=== PATIENT | male | born 1990 | race Caucasian/White ===

== ENCOUNTER 2017-07-20 00:15 | Inpatient (IN) | payer OTHER ==
[~2017-07-20] VITALS: Ht 193 cm; Wt 95.3 kg
--- NOTE | 2017-07-20 12:35 | NUR ---
Pre admission assessment Patient is a 26 year old male , AAO x 4 , no SOB, slightly anxious. Discussed with patient admission policies of the unit. Patient is able to respond to questions appropriately, ambulating, steady gait. patient reports using Alcohol ( beer , wine, whisky ) 10-15 drinks per day ( 1 drink =1 beer/1 glass wine/1 shot whisky) and Rx Xanax 0.5mg 3-5 times/day. Occasional use of cocaine, MDMA , last used March 2017. Vital signs stable, 125/72 hr 90 RR 18, O2 96%, temp 96f. patient verbalized instructions and teachings regarding disposal of narcotics and other controlled home meds, unit protocols and disposal of contraband. Will further assess when patient on unit
[2017-07-20] MEDS ORDERED: LOPERAMIDE HCL 2 MG CAPSULE PO PRN ×2 (13:00)
[2017-07-20] MEDS ORDERED: ONDANSETRON 4 MG/2 ML VIAL IM PRN (13:00)
[2017-07-20] MEDS ORDERED: LORAZEPAM 2 MG/1 ML VIAL IM PRN (13:00)
[2017-07-20] MEDS ORDERED: MIRALAX 17 GM POWD.PACK PO PRN (13:00)
[2017-07-20] MEDS ORDERED: NICOTINE POLACRILEX 4 MG GUM-PK OF TEN BC PRN (13:00)
[2017-07-20] MEDS ORDERED: MAG HYDROX/AL HYDROX/SIMETH 30 ML LIQUID UDC PO PRN (13:00)
[2017-07-20] MEDS ORDERED: ONDANSETRON ODT 4 MG TAB.RAPDIS SL PRN (13:00)
[2017-07-20] MEDS ORDERED: NICOTINE 14 MG/24HR PATCH TD PRN (13:00)
[2017-07-20] MEDS ORDERED: MAGNESIUM HYDROXIDE 30 ML LIQUID UDC PO PRN (13:00)
[2017-07-20] MEDS ORDERED: THIAMINE HCL 200 MG/2 ML VIAL IM ONE (13:00)
[2017-07-20] MEDS ORDERED: DICYCLOMINE HCL 20 MG TABLET PO PRN (13:00)
[2017-07-20] MEDS ORDERED: diphenhydrAMINE 50 MG CAPSULE PO PRN (13:00)
[2017-07-20] MEDS ORDERED: LORAZEPAM 1 MG TABLET PO PRN ×2 (13:00)
--- NOTE | 2017-07-20 13:00 | NUR ---
Admission assessment 26 year old male presented to [facility] to detoxify from Alcohol and Rx xanax. Pt arrived here by car with his mother at 1230 , patient admitted under the care of Dr Pardo and is in room 305. NKA, Regular diet, full code, weight is 210 and height 6'4", skin clear and intact. Patient reports no history of seizures, no SI/HI, mood appears slightly anxious. Patient states that he got last year and that has caused alot of stress in his life and has caused him to drink more and abuse his Rx Xanax, pt states he drinks 10-15 drinks a day ( beer/wine/whisky) and uses Xanax 0.5mg po 3-5 x day. patient is from his currently and living with his Mom, family history of substance abuse ( father is an alcoholic) Admission CIWA 4 @ 1300, safety measures in place , will continue to monitor
[2017-07-20] MEDS ORDERED: ESCI10TA PO (13:23)
[2017-07-20] MEDS ORDERED: ALPR0.5T8 PO (13:23)
[2017-07-20 13:53] LABS: *AMPHETAMINE, URINE NEGATIVE (NEGATIVE); *BARBITURATE, URINE NEGATIVE (NEGATIVE); *CANNABINOID, URINE NEGATIVE (NEGATIVE); *COCCAINE, URINE NEGATIVE (NEGATIVE); *OPIATE, URINE NEGATIVE (NEGATIVE); *PHENCYCLIDINE SCREEN,URINE NEGATIVE (NEGATIVE)
[2017-07-20 15:00] LABS: BASOPHILS # (AUTO) 0.1 K/uL (0.0-8.0); BASOPHILS % (AUTO) 1.4 % (0.0-2.0); EOSINOPHILS # (AUTO) 0.4 K/uL (0.0-0.7); EOSINOPHILS % (AUTO) 7.8 % (0.0-7.0); HEMATOCRIT 45.9 % (36.7-47.1); LYMPHOCYTES # (AUTO) 1.5 K/uL (20.0-40.0); LYMPHOCYTES % (AUTO) 29.5 % (20.5-51.5); MEAN CORPUSCULAR HEMOGLOBIN 35.1 uug (23.8-33.4); MEAN CORPUSCULAR HGB CONC 35 g/dL (32.5-36.3); MEAN CORPUSCULAR VOLUME 100.4 fL (73.0-96.2); MONOCYTES # (AUTO) 0.4 K/uL (2.0-10.0); NEUTROPHILS # (AUTO) 2.8 K/uL (1.8-8.9); NEUTROPHILS % (AUTO) 53.3 % (38.5-71.5); PLATELET COUNT (AUTO) 200 K/uL (152-348); RED BLOOD CELL COUNT(AUTO) 4.57 MIL/uL (4.06-5.63); WHITE BLOOD COUNT (AUTO) 5.2 K/uL (3.6-10.2)
[2017-07-20 15:10] LABS: BILIRUBIN,TOTAL 0.3 mg/dL (0.2-1.0); CREATININE 1.1 mg/dL (0.6-1.3); MAGNESIUM 1.8 mg/dL (1.8-2.4); TOTAL PROTEIN, SERUM 7.9 g/dL (6.4-8.2)
[2017-07-20 17:00] VITALS: BP 125/80
--- NOTE | 2017-07-20 18:34 | NUR ---
End of shift note : 26 year old male presented to [facility] to detoxify from Alcohol and Rx Xanax. Patient admitted under the care of Dr Pardo and is in room 305. NKA, Regular diet, full code, weight is 210 and height 6'4", skin clear and intact. Patient reports no history of seizures, no SI/HI, mood appears slightly anxious. Has a history of anxiety and depression. Patient will start tonight on a 5 day Ativan taper. Patient has been resting on his bed all afternoon, breathing unlabored and even, no distress noted. No medications given this shift. Last CIWA 4 @ 1600. Bed in low locked position with side rails up x 2. Continue to follow MD plan of care.
--- NOTE | 2017-07-20 19:30 | NUR ---
END OF SHIFT Pt is a 26 y/o male admitted today for ETOH and benzo dependence. Pt will start a 5 day Ativan taper tonight. No PRNs administered during day shift and last CIWA 4 at 1600. Upon assessment pt presents with anxiety, agitation, restlessness, flushed skin, increased BP, sweats, headache. Denies chest pain or SOB. Respirations even and unlabored. Denies N/V/D. Safety measures in place. Call light within reach. Will continue to monitor. Addendum: 07/20/17 at 7 by PAUL MARIN RN START OF SHIFT, NOT END OF SHIFT
[2017-07-20 20:00] VITALS: BP 152/84
[2017-07-20] MEDS: CLONIDINE HCL 0.1 MG TABLET PO PRN (20:16)
[2017-07-20] MEDS: IBUPROFEN 400 MG TABLET PO PRN (20:16)
--- NOTE | 2017-07-20 20:16 | NUR ---
PRN MOTRIN AND CLONIDINE ADMINISTRATION Pt reports headache 10/08. BP 152/84 HR 76, orders to give Clonidine for BP > 140/90. Safety measures in place. Call light within reach. Will continue to monitor.
[2017-07-20] MEDS ORDERED: LORAZEPAM 1 MG TABLET PO SCH (21:00)
[2017-07-20 21:16] VITALS: BP 136/65
--- NOTE | 2017-07-20 21:16 | NUR ---
PRN MOTRIN AND CLONIDINE REASSESSMENT Pt reports headache decreased to 1/10. BP 136/65 HR 74, Clonidine effective. Safety measures in place. Call light within reach. Will continue to monitor.
[2017-07-20] MEDS ORDERED: TRAZ-147 PO (23:08)
[2017-07-21] VITALS (7 sets, daily range): BP systolic 117–154; BP diastolic 53–89
--- NOTE | 2017-07-21 | NUR ---
CIWA DEFERRED Pt laying in bed with eyes closed, CIWA deferred, to be assessed when pt is awake per orders. Respirations even and unlabored. Safety measures in place. Call light within reach. Will continue to monitor.
--- NOTE | 2017-07-21 06:58 | NUR ---
END OF SHIFT Pt is a 26 y/o male admitted today for ETOH and benzo dependence. Pt started a 5 day Ativan taper last night, tolerated well. Pt presented with anxiety, agitation, restlessness, flushed skin, increased BP, depressed affect, sweats and headache. Pt was seen sitting in chair in room with restless legs and anxiety for duration of hours awake. Scheduled medications and PRN Motrin and Clonidine administered, effective in S/S of withdrawal as verbalized by pt. Last CIWA 7 at 1999. Pt slept 6 hours. Intake 1415, void x 3, stool x 0. Safety measures in place. Call light within reach. Pts needs have been met. Endorsed to day shift nurse.
[2017-07-21] MEDS: PANTOPRAZOLE SODIUM 40 MG TABLET.DR PO SCH (07:09)
--- NOTE | 2017-07-21 07:10 | NUR ---
Start of shift Pt is a 26 y/o male admitted 07/20/17 for ETOH and benzo withdrawal. Pt started a 5 day Ativan taper last night, tolerated well. Scheduled medications and PRN Motrin and Clonidine administered, Last CIWA 7 at 1999. Pt slept 6 hours. Safety measures in place. Call light within reach. NKA , regular diet and full code, will follow MD plan of care
[2017-07-21] MEDS: FOLIC ACID 1 MG TABLET PO SCH (08:25)
[2017-07-21] MEDS: THIAMINE HCL 100 MG TABLET PO SCH (08:25)
[2017-07-21] MEDS: MULTIVITAMINS,THERAPEUTIC TABLET PO SCH (08:25)
[2017-07-21] MEDS: LORAZEPAM 1 MG TABLET PO SCH ×3 (08:25→21:04)
[2017-07-21] MEDS ORDERED: TUBERCULIN,PURIF.PROT.DERIV. 5 TU/0.1 ML TEST ID ONE (09:00)
[2017-07-21] MEDS: ESCITALOPRAM OXALATE 10 MG TABLET PO SCH (10:43)
[2017-07-21] MEDS: CLONIDINE HCL 0.1 MG TABLET PO PRN ×2 (12:38→21:03)
[2017-07-21] MEDS: ACETAMINOPHEN 325 MG TABLET PO PRN (12:38)
[2017-07-21] MEDS: IBUPROFEN 400 MG TABLET PO PRN (12:38)
--- NOTE | 2017-07-21 12:38 | NUR ---
PRN MEDS/HEADACHE TYLENOL 650MG PO, MOTRIN 400MG PO AND CLONIDINE 0.1 MG PO GIVEN FOR COMPLAINTS OF HEADACHE 3/10 AND INCREASED BLOOD PRESSURE 154/89 NO DOUBLE VISION OR DIZZYNESS REPORTED, WILL REASSESS IN 1 HOUR
--- NOTE | 2017-07-21 13:38 | NUR ---
PRN REASSESS LATE AMEND : PRN MOTRIN 400MG AND CLONIDINE 0.1MG PO EFFECTIVE, NO C/O HEADACHE, BP 138/69
--- NOTE | 2017-07-21 18:38 | NUR ---
End of shift note : 26 year old male presented to [facility] to detoxify from Alcohol and Rx Xanax. Patient admitted under the care of Dr Pardo and is in room 305. NKA, Regular diet, full code, weight is 210 and height 6'4", skin clear and intact. Patient reports no history of seizures, no SI/HI, mood appears slightly anxious. Has a history of anxiety and depression. Patient is on a 5 day Ativan taper and today is day 2 and is tolerating well. Patient attended group today and said it helped a lot. PRN meds given this shift: motrin 400mg po/ Tylenol 650mg po for headache and Clonidine 0.1mg po for increased BP and all were effective. MD started patient on Lexapro 50mg po every AM. Last CIWA 6@ 1600. MD ordered Trazadone 100mg po at bedtime and Gabapentin 300mg po Q12H, Protonix to be given @ 0700. Patient declined TB test today. Safety measures in place, bed in low locked position with side rails up x2 , call light within reach, continue MD plan of care.
--- NOTE | 2017-07-21 19:30 | NUR ---
START OF SHIFT Pt is a 26 y/o male admitted today for ETOH and benzo dependence. Pt will start a 5 day Ativan taper tonight. PRN Clonidine, Motrin and Tylenol administered and last CIWA 6 at 1600. Upon assessment pt was laying in bed with eyes closed. Upon awakening, pt presents with anxiety, agitation, restlessness, flushed skin, fatigue, increased BP, sweats, headache. Denies chest pain or SOB. Respirations even and unlabored. Denies N/V/D. Safety measures in place. Call light within reach. Will continue to monitor. Addendum: 07/22/17 at 0445 by PAUL MARIN RN CORRECTION: ADMITTED ON 07/20/17 Addendum: 07/22/17 at 0447 by PAUL MARIN RN CORRECTION: STARTED AN ATIVAN TAPER ON 07/20/17, TOLERATING WELL.
[2017-07-21] MEDS ORDERED: TRAZODONE 100 MG TABLET PO SCH (21:00)
[2017-07-21] MEDS: GABAPENTIN 300 MG CAPSULE PO SCH (21:03)
--- NOTE | 2017-07-21 21:03 | NUR ---
PRN CLONIDINE ADMINISTRATION BP 141/84 HR 80, orders to give Clonidine 0.1 mg for BP >140/90. Safety measures in place. Call light within reach. Will continue to monitor.
--- NOTE | 2017-07-21 22:03 | NUR ---
PRN CLONIDINE REASSESSMENT BP 117/53 HR 72, Clonidine effective. Safety measures in place. Call light within reach. Will continue to monitor.
[2017-07-22] VITALS: BP 120/64
[2017-07-22 04:00] VITALS: BP 121/68
--- NOTE | 2017-07-22 06:55 | NUR ---
END OF SHIFT Pt is a 26 y/o male admitted ON 07/20/17 for ETOH and benzo dependence. Pt started a 5 day Ativan taper on 07/20/17, tolerating well. Pt presented with anxiety, agitation, restlessness, flushed skin, difficulty concentrating, malaise, fatigue, increased BP, sweats, headache. Scheduled medications and PRN Clonidine administered for BP, effective in S/S of withdrawal as verbalized by pt. BP went from 141/84 to 117/74. Last CIWA 11 at 1999. Pt slept 8 hours. Intake 1355 ml, void x 3, stool x 0. Safety measures in place. Call light within reach. Pts needs have been met. Endorsed to day shift nurse.
[2017-07-22] MEDS: PANTOPRAZOLE SODIUM 40 MG TABLET.DR PO SCH (07:08)
--- NOTE | 2017-07-22 07:54 | NUR ---
START OF SHIFT RECEIVED PT A/OX4. RESPIRATIONS EVEN AND UNLABORED. PT REPORTS HAVING ANXIETY, RESTLESSNESS, HEADACHE. PT REPORTS BEING ABLE TO SLEEP WELL FOR THE FIRST TIME LAST NIGHT. PT CONTINUES ON A 5 DAY ATIVAN TAPER AND IS TOLERATING WELL PER AUTOMOTIVE PARTS MANAGER NURSE. ENCOURAGED PT TO INCREASE FLUID INTAKE TO PROMOTE HYDRATION. SIDE RAILS UP X2, BED IS IN LOWEST POSITION. ALL SAFETY MEASURES IN PLACE. CALL LIGHT IS WITHIN REACH. WILL CONTINUE TO MONITOR.
[2017-07-22 08:00] VITALS: BP 138/79
[2017-07-22] MEDS: THIAMINE HCL 100 MG TABLET PO SCH (08:59)
[2017-07-22] MEDS: FOLIC ACID 1 MG TABLET PO SCH (08:59)
[2017-07-22] MEDS: LORAZEPAM 1 MG TABLET PO SCH ×3 (08:59→16:58)
[2017-07-22] MEDS: MULTIVITAMINS,THERAPEUTIC TABLET PO SCH (08:59)
[2017-07-22] MEDS: GABAPENTIN 300 MG CAPSULE PO SCH ×2 (08:59→21:23)
[2017-07-22] MEDS: ESCITALOPRAM OXALATE 10 MG TABLET PO SCH (08:59)
[2017-07-22] MEDS: IBUPROFEN 400 MG TABLET PO PRN ×2 (09:00→21:23)
--- NOTE | 2017-07-22 09:00 | NUR ---
PRN MOTRIN 400 MG PO PRN GIVEN FOR HEADACHE 5/10 PAIN. WILL MONITOR FOR EFFECTIVENESS.
--- NOTE | 2017-07-22 10:00 | NUR ---
REASSESSMENT PT REPORTED MED WAS EFFECTIVE FOR HEADACHE. WILL CONTINUE TO MONITOR.
[2017-07-22 12:00] VITALS: BP 128/80
[2017-07-22 16:00] VITALS: BP 156/82
[2017-07-22] MEDS: CLONIDINE HCL 0.1 MG TABLET PO PRN (17:45)
--- NOTE | 2017-07-22 17:45 | NUR ---
PRN CLONIDINE 0.1 MG PO PRN GIVEN FOR ANXIETY AND BP: 156/82. WILL MONITOR FOR EFFECTIVENESS.
--- NOTE | 2017-07-22 19:31 | NUR ---
END OF SHIFT PT IS A 26 Y/O M ADMITTED FOR ETOH W/D. PT IS A/OX4. RESPIRATIONS EVEN AND UNLABORED. PT REPORTS HAVING ANXIETY, RESTLESSNESS, HEADACHE AND A LACK OF APPETITE. PT STATES HE FEELS EMOTIONAL AND EASILY FEELS SAD OR DEPRESSED; PT STATES HE ALMOST HAD A PANIC ATTACK AFTER EXPERIENCING AN ALTERCATION DURING GROUP YESTERDAY BUT CALMED DOWN ONCE HE GOT INTO HIS ROOM. GAVE REASSURANCE EDUCATED ON S/S TO REPORT. PT HAD HIGH BP DURING SHIFT AND CLONIDINE WAS GIVEN. LAST CIWA 8 AT 1600. PT CONTINUES ON A 5 DAY ATIVAN TAPER AND IS TOLERATING WELL. ENCOURAGED PT TO INCREASE FLUID INTAKE TO PROMOTE HYDRATION. SIDE RAILS UP X2, BED IS IN LOWEST POSITION. ALL SAFETY MEASURES IN PLACE. CALL LIGHT IS WITHIN REACH. WILL GIVE ALL PERTINENT INFO AND ENDORSEMENT TO CIVIL SERVICE WORKER NURSE.
[2017-07-22 20:00] VITALS: BP 134/74
--- NOTE | 2017-07-22 20:00 | NUR ---
START OF SHIFT NOTE RECEIVED REPORT FROM DAY SHIFT NURSE . PATIENT IS A 26 YEAR OLD MALE,ADMITTED ON 07/20/2017 FOR ETOH DEPENDENCE. PATIENT ON 3RD DAY OF HIS ATIVAN TAPER. UPON ADMISSION, PATIENT DRINKS (BEER, WINE ,WHISKEY) 10-15 DAILY FOR 13 YEARS AND TAKES XANAX 0.5MG /5X DAILY LESS THAN A YEAR. HE ALSO TAKES COCAINE AND MDMA OCCASIONALLY. PATIENT REPORTS PMH OF ANXIETY, DEPRESSION AND GERD. SKIN INTACT. PATIENT EMOTIONAL DURING THE DAY. PATIENT WAS GIVEN PRN CLONIDINE AND MOTRIN. LAST CIWA 8. RECEIVED PATIENT ALERT AND ORIENTED X 4. RESPIRATION EVEN AND UNLABORED. PATIENT PRESENTS WITH ANXIETY, SWEATING AND C/O HEADACHE 2/10 AND WITH DECREASED APPETITE. PATIENT STATES HE ATTENDED GROUPS. SAFETY MEASURES IN PLACE. WILL CONTINUE TO MONITOR.
[2017-07-22] MEDS ORDERED: LORAZEPAM 1 MG TABLET PO SCH (21:00)
--- NOTE | 2017-07-22 21:23 | NUR ---
PRN MOTRIN ADMINISTRATION PATIENT C/O HEADACHE 08/10. WILL MONITOR FOR EFFECTIVENESS
[2017-07-22] MEDS: TRAZODONE 100 MG TABLET PO SCH (21:24)
--- NOTE | 2017-07-22 22:23 | NUR ---
PRN MOTRIN RE-ASSESSMENT PATIENT STATES MOTRIN HELPFUL AND EFFECTIVE. NO C/O PAIN AT THIS TIME. WILL CONTINUE TO MONITOR
--- NOTE | 2017-07-23 | NUR ---
CIWA DEFERRED PATIENT IN BED WITH EYES CLOSED. CIWA DEFERRED. PATIENT REFUSED VS. RESPIRATION EVEN AND UNLABORED. WILL CONTINUE TO MONITOR.
--- NOTE | 2017-07-23 04:00 | NUR ---
CIWA DEFERRED PATIENT IN BED WITH EYES CLOSED. CIWA DEFERRED. PATIENT REFUSED VS. RESPIRATION EVEN AND UNLABORED. WILL CONTINUE TO MONITOR.
[2017-07-23 04:09] LABS: HEPATITIS B SURFACE AG Negative (Negative)
[2017-07-23] MEDS: PANTOPRAZOLE SODIUM 40 MG TABLET.DR PO SCH (06:38)
--- NOTE | 2017-07-23 07:06 | NUR ---
START OF SHIFT NOTE PATIENT SLEPT 8 HOURS. FLUID INTAKE 1,553 ML. VOIDED X 2 . NO BM. CONTINUE PATIENT ATIVAN TAPER, TOLERATED WELL AND NO ADVERSE REACTION NOTED. PATIENT PRESENTS WITH ANXIETY, SWEATING AND C/O HEADACHE 08/10 AND WITH DECREASED APPETITE BEGINNING OF SHIFT . PATIENT STATES HE ATTENDED GROUPS. PATIENT COMPLIANT WITH MEDICATION AND TREATMENT PLAN. MEDICATIONS ARE EFFECTIVE IN CONTROLLING HIS WITHDRAWAL SYMPTOMS. PATIENT WAS GIVEN PRN MOTRIN FOR HEADACHE AND EFFECTIVE. PATIENT REFUSED TO HAVE BOTH SIDE RAILS UP, EXPLAINED RISKS/BENEFITS. PATIENT DEMONSTRATED UNDERSTANDING. WILL CONTINUE TO MONITOR. LAST CI 5. Addendum: 07/23/17 at 0707 by REJI SKINNER LVN ERROR: THIS IS END OF SHIFT NOTE
--- NOTE | 2017-07-23 07:10 | NUR ---
Start of shift Pt is a 26 y/o male admitted 07/20/17 for ETOH and benzo withdrawal. Pt is on a 5 day Ativan taper and this is day 3, tolerated well. Scheduled medications and PRN Motrin 400mg po given last night. Last CIWA 5 at 2000. Pt slept 8 hours. Safety measures in place. Call light within reach. NKA , regular diet and full code, will follow MD plan of care
[2017-07-23 08:00] VITALS: BP 115/52
[2017-07-23] MEDS: THIAMINE HCL 100 MG TABLET PO SCH (08:41)
[2017-07-23] MEDS: FOLIC ACID 1 MG TABLET PO SCH (08:41)
[2017-07-23] MEDS: GABAPENTIN 300 MG CAPSULE PO SCH ×3 (08:41→21:49)
[2017-07-23] MEDS: LORAZEPAM 1 MG TABLET PO SCH ×3 (08:41→21:49)
[2017-07-23] MEDS: ESCITALOPRAM OXALATE 10 MG TABLET PO SCH (08:48)
[2017-07-23] MEDS: MULTIVITAMINS,THERAPEUTIC TABLET PO SCH (08:48)
--- NOTE | 2017-07-23 10:00 | NUR ---
Therapist prompted client about group times. Client stated he will attend all groups today.
[2017-07-23 12:00] VITALS: BP 141/70
[2017-07-23 16:00] VITALS: BP 139/72
--- NOTE | 2017-07-23 18:56 | NUR ---
End of shift : Pt is a 26 y/o male admitted 07/20/17 for ETOH and benzo withdrawal. Pt is on a 5 day Ativan taper and this is day 4, tolerated well. No PRN medications requested or required. Last CIWA 4 @ 1600. Patient attended groups today. Safety measures in place. Call light within reach. NKA , regular diet and full code, will follow MD plan of care
--- NOTE | 2017-07-23 19:00 | NUR ---
Start of Shift Patient Received. Patient is a activities room participating in group meeting. Patient is a 26 year old male admitted on 07/20/2017 for ETOH Dependence and continues on a 5 day Ativan taper. Per endorsement, patient has been compliant with plan of care and participating in group and social activities. No PRN Medications administered. Last noted CIWA 4. All needs attended to promptly. Will continue plan of care as ordered.
[2017-07-23 20:00] VITALS: BP 127/76
[2017-07-23] MEDS: TRAZODONE 100 MG TABLET PO SCH (21:49)
[2017-07-23] MEDS: IBUPROFEN 400 MG TABLET PO PRN (21:51)
--- NOTE | 2017-07-23 21:55 | NUR ---
PRN Medication Administration Patient Verbalizing increased pain 5/10 due to headache. PRN Motrin administered as per orders. Patient also noted to refuse vitals and states "I have a difficult time sleeping that is why I take sleeping medication. If I'm sleeping please let me sleep." Risks and benefits explained. patient verbalized understanding.
--- NOTE | 2017-07-23 23:00 | NUR ---
PRN Medication Reassessment Patient is noted in bed sleeping. Breathing even and non labored. No signs of pain or discomfort noted. No facial grimacing noted. PRN Motrin noted to be effective. All needs attended to promptly. Will continue to monitor.
--- NOTE | 2017-07-24 00:31 | NUR ---
Vitals Refused During 2099 medication administration patient noted to refuse 0000 and 0400 vitals due to patients inability of falling back asleep. Patient respirations noted to be 16. Will continue to monitor. Addendum: 07/24/17 at 0031 by ILSA SOTO LVN Amended: Links added.
--- NOTE | 2017-07-24 04:00 | NUR ---
Vitals Refused Patient noted to refuse 0400 vitals due to patients inability of falling back asleep. Patient respirations noted to be 16. Will continue to monitor. Addendum: 07/24/17 at 0531 by ILSA SOTO LVN Amended: Links added.
[2017-07-24] MEDS: PANTOPRAZOLE SODIUM 40 MG TABLET.DR PO SCH (06:43)
--- NOTE | 2017-07-24 07:05 | NUR ---
End of Shift Patient is in bed sleeping. Breathing even and non labored. No signs of pain or discomfort noted. Patient continues on a modified Ativan taper and is tolerating well. PRN Motrin was given for headache with medication noted to be effective. Last noted CIWA 5. All needs attended to promptly. Will continue plan of care as ordered.
--- NOTE | 2017-07-24 07:15 | NUR ---
Start of shift : Patient asleep in bed at this time, breathing even and unlabored. Pt is a 26 y/o male admitted 07/20/17 for ETOH and benzo withdrawal. Pt is on a 5 day Ativan taper and this is day 4, tolerated well. Scheduled medications and PRN Motrin 400mg po given last night for C/O headache. Last CIWA 5 at 2030. Pt slept 5 hours. Safety measures in place. Call light within reach. NKA , regular diet and full code, will follow MD plan of care
[2017-07-24 08:00] VITALS: BP 138/55
[2017-07-24] MEDS: GABAPENTIN 300 MG CAPSULE PO SCH ×3 (08:27→20:51)
[2017-07-24] MEDS: MULTIVITAMINS,THERAPEUTIC TABLET PO SCH (08:27)
[2017-07-24] MEDS: LORAZEPAM 1 MG TABLET PO SCH ×2 (08:27→20:51)
[2017-07-24] MEDS: FOLIC ACID 1 MG TABLET PO SCH (08:27)
[2017-07-24] MEDS: THIAMINE HCL 100 MG TABLET PO SCH (08:27)
[2017-07-24] MEDS: ESCITALOPRAM OXALATE 10 MG TABLET PO SCH (08:28)
[2017-07-24 12:00] VITALS: BP 138/72
[2017-07-24 16:00] VITALS: BP 145/84
[2017-07-24] MEDS: ACETAMINOPHEN 325 MG TABLET PO PRN (17:31)
--- NOTE | 2017-07-24 17:31 | NUR ---
PRN TYLENOL 650MG PO , MOTRIN 400MG PO AND CLONIDINE 0.1 MG PO GIVEN FOR COMPLAINTS OF HEADACHE AND BP 145/84, WILL REASSESS AND MONITOR
[2017-07-24] MEDS: CLONIDINE HCL 0.1 MG TABLET PO PRN (17:32)
[2017-07-24] MEDS: IBUPROFEN 400 MG TABLET PO PRN (17:32)
--- NOTE | 2017-07-24 18:31 | NUR ---
REASSESS PRN TYLENOL AND ALBERTS EFFECTIVE FOR H/A, PT STATES THAT HE NO LONGER HAS A HEADACHE, BP RECHECKED 162/63, WILL CONTINUE TO MONITOR.
--- NOTE | 2017-07-24 18:47 | NUR ---
End of shift : Pt is a 26 y/o male admitted to [facility] on 07/20/17 for ETOH and benzo withdrawal. Pt is on a 5 day Ativan taper and this is day 5, tolerated well. PRN medications given @ 1731 tylenol 650 mg po, motrin 400mg po for headache 310 and clonidine 0.1mg po for BP 145/84, recheck of BP after 1 hour was 162/63, HR 95 . Last CIWA 4 @ 1600. Patient attended groups today. Safety measures in place. Call light within reach. NKA , regular diet and full code, will follow MD plan of care
--- NOTE | 2017-07-24 19:15 | NUR ---
START OF SHIFT Received 26 year old male patient admitted on 07/20/17 for EOTH, Xanax, Cocaine and MDMA dependency. Pt is full code with NKA. He reports a PMHx of anxiety, depression and acid reflux. Pt reports using ETOH (beer, wine, whiskey) 10-15 drinks per day for 13 years. Last dose was 5 drinks on 07/20/17. Xanax PO 0.5 mg/5 times per day for over one year. Last dose was 1 mg on 07/19/17. And occasional use of MDMA and cocaine. Pt is on a 5 day Ativan taper, currently on day 5/5 and tolerating well. Per endorsement, pt received PRN Tylenol, Motrin and Clonidine. Pt is alert and oriented x4, breathing even and unlabroed, safety measures in place. Will continue to monitor.
[2017-07-24 20:00] VITALS: BP 150/55
[2017-07-24] MEDS: TRAZODONE 100 MG TABLET PO SCH (20:52)
[2017-07-25] MEDS: PANTOPRAZOLE SODIUM 40 MG TABLET.DR PO SCH (06:44)
--- NOTE | 2017-07-25 07:04 | NUR ---
END OF SHIFT Pt is a 26 year old male patient admitted on 07/20/17 for EOTH, Xanax, Cocaine and MDMA dependency. Pt is full code with NKA. Pt was receiving a 5 day Ativan taper, and tolerated well. He did not receive or request PRN medications. He slept a total of 9 hrs, Intake: 1453mL, Void: x3, BM:0, CIWA:3. Pt remains alert and oriented x4, breathing even and unlabored, safety measures in place. Endorsed to AM shift.
[2017-07-25 08:00] VITALS: BP 145/62
[2017-07-25] MEDS: GABAPENTIN 300 MG CAPSULE PO SCH ×3 (08:37→21:59)
[2017-07-25] MEDS: MULTIVITAMINS,THERAPEUTIC TABLET PO SCH (08:37)
[2017-07-25] MEDS: ESCITALOPRAM OXALATE 10 MG TABLET PO SCH (08:37)
[2017-07-25] MEDS: THIAMINE HCL 100 MG TABLET PO SCH (08:37)
[2017-07-25] MEDS: FOLIC ACID 1 MG TABLET PO SCH (08:37)
[2017-07-25] MEDS ORDERED: LORAZEPAM 1 MG TABLET PO SCH (09:00)
--- NOTE | 2017-07-25 09:00 | NUR ---
START OF SHIFT Received report from typewriter tester nurse. Patient is 26 year old male admitted for medically supervised withdrawal from alcohol and alprazolam. Patient is full code with NKA, on seizure and fall precautions. On assessment this AM: CIWA:4. Denies SOB, chest pain. Patients vitals signs: 145/62, HR 77, R 18, Temp 97.7, pain 0/10, saturating at 99% on room air. Reports anxiety and tremors. No PRN given. Pt. tolerated breakfast without n/v. Last BM today, X1 on this shift, meagan, pt. reported he already had 2BM today but declined prn when offered. Patient was encouraged to attend group meetings today. Will continue to monitor patient.
[2017-07-25 12:00] VITALS: BP 139/72
--- NOTE | 2017-07-25 13:52 | NUR ---
Therapist prompted client to come to groups today, Client agreed to attend.
[2017-07-25] MEDS ORDERED: PANT40TA2 PO (13:56)
[2017-07-25] MEDS ORDERED: IBUP-1953 PO (13:56)
[2017-07-25] MEDS ORDERED: GABA-534 PO (13:56)
[2017-07-25 16:00] VITALS: BP 120/72
--- NOTE | 2017-07-25 18:49 | NUR ---
END OF SHIFT 26 year old male admitted for medically supervised withdrawal from alcohol and alprazolam. Patient is full code with NKA . Most recent CIWA: 1. No PRN given. Compliant with routine meds during this shift. Patient tolerating meals without n/v. Last BM today, X2 on this shift, loose, pt. reported he had 3BMs today but declined prn when offered. Reported headache pain 1/10 but declined prn Tylenol when offered. Patient attended to groups this shift. Ambulating with steady gait, no falls noted. Pending discharge tomorrow. international freight forwarderpatient clerical assistant will continue to monitor patient.
--- NOTE | 2017-07-25 19:15 | NUR ---
START OF SHIFT Received 26 year old male patient admitted on 07/20/17 for ETOH, Xanax, Cocaine and MDMA dependency. Pt is full code with NKA. He reports a PMHx of anxiety, depression and acid reflux. Pt reports using ETOH (beer, wine, whiskey) 10-15 drinks per day for 13 years. Last dose was 5 drinks on 07/20/17. Xanax PO 0.5 mg/5 times per day for over one year. Last dose was 1 mg on 07/19/17. And occasional use of MDMA and cocaine. Pt completed his 5 day Ativan taper and tolerated well. He is scheduled to be DC tomorrow to [facility]. Per endorsement, pt did not receive or request PRN medications. Pt is alert and oriented x4, breathing even and unlabored, safety measures in place. Will continue to monitor.
[2017-07-25 20:00] VITALS: BP 144/87
[2017-07-25] MEDS: TRAZODONE 100 MG TABLET PO SCH (21:59)
--- NOTE | 2017-07-26 | NUR ---
VITALS REFUSED, CIWA DEFERRED 0000 vitals refused. CIWA deferred d/t pt lying in bed with eyes closed noted to be asleep. Safety measures in place. Will continue to monitor.
--- NOTE | 2017-07-26 04:00 | NUR ---
VITALS REFUSED, CIWA DEFERRED 0400 vitals refused. CIWA deferred d/t pt lying in bed with eyes closed noted to be asleep. Safety measures in place. Will continue to monitor.
[2017-07-26] MEDS: PANTOPRAZOLE SODIUM 40 MG TABLET.DR PO SCH (06:48)
--- NOTE | 2017-07-26 07:13 | NUR ---
END OF SHIFT Pt in bed awake, alert and oriented. Pt completed his 5 day Ativan taper and tolerated well. He is scheduled to be DC today to [facility]. He did not receive or request PRN medications. He slept a total of 7 hrs, Intake: 2100mL, Void: x2, BM:0, CIWA:1 . Safety measures in place. Endorsed to AM shift.
--- NOTE | 2017-07-26 07:15 | NUR ---
Start of Shift Steaming Cabinet Tender received report on 26 year old male admitted to [facility] on 07/20/17 for ETOH and Xanax detoxification. Pt has NKDA, is a full code and eats a regular diet. Reports a PMH of anxiety, depression and Reflux. Pt has completed his Ativan taper and is set to discharge this morning. Last CIWA of 1 recorded on NOC. No PRN medication administered during NOC. Steaming Cabinet Tender encounters pt in his room resting on bed. Pt is A/O x4 and able to make needs known. Calm, cooperative and polite. Bright affect and congruent mood. Pt states he is hopeful and excited for his first treatment. Bed in low position, wheels locked and side rails up x2. Will continue to monitor, support and encourage according to plan of care.
[2017-07-26 08:09] VITALS: BP 116/77
[2017-07-26] MEDS: FOLIC ACID 1 MG TABLET PO SCH (08:34)
[2017-07-26] MEDS: GABAPENTIN 300 MG CAPSULE PO SCH (08:35)
[2017-07-26] MEDS: ESCITALOPRAM OXALATE 10 MG TABLET PO SCH (08:35)
[2017-07-26] MEDS: THIAMINE HCL 100 MG TABLET PO SCH (08:36)
[2017-07-26] MEDS: MULTIVITAMINS,THERAPEUTIC TABLET PO SCH (08:36)
--- NOTE | 2017-07-26 09:23 | NUR ---
Discharge Pt discharged [facility] per ambulation, to awaiting transportation service for transportation to [facility]. Pt is calm, cooperative, polite and pleasant. A/O x4 and able to make needs known. Denies SI/HI or A/VH, denies any psychiatric symptoms. Pt with a bright affect, congruent mood and hopeful outlook. All discharge education completed, including medication education. Pt provided with prescriptions for continued medication. Pt's home medication returned, all belongings returned. Discharge paperwork, personal belongings and necessary paperwork signed. notified of pt's departure.
== END 2017-07-26 09:23 | disposition other institution (70) | DRG 895 ==
LOC: SRC 12:10
PROVIDERS: ADMIT Internal Medicine; ATTEND Internal Medicine
PROC: HZ2ZZZZ Detoxification Services for Substance Abuse Treatment (ICD-10-PCS; principal; 2017-07-20)
PROC: HZ41ZZZ Group Counseling for Substance Abuse Treatment, Behavioral (ICD-10-PCS; 2017-07-21)
PROC: HZ31ZZZ Individual Counseling for Substance Abuse Treatment, Behavioral (ICD-10-PCS; 2017-07-23)
DX: F10.230 Alcohol dependence with withdrawal, uncomplicated (principal); I15.9 Secondary hypertension, unspecified; F33.1 Major depressive disorder, recurrent, moderate; F13.239 Sedative, hypnotic or anxiolytic dependence with withdrawal, unspecified; F14.10 Cocaine abuse, uncomplicated; Y90.9 Presence of alcohol in blood, level not specified; K21.9 Gastro-esophageal reflux disease without esophagitis; F41.9 Anxiety disorder, unspecified; Z81.1 Family history of alcohol abuse and dependence; F16.10 Hallucinogen abuse, uncomplicated; F17.210 Nicotine dependence, cigarettes, uncomplicated
CPT/HCPCS: 36415; 70030-TC; 80307; 83735; 85025; 86592; 86705; 86803; 87340; 87806; G0480; J3411